=== PATIENT | female | born 1980 | race Two or more races ===

== ENCOUNTER → 2017-10-03 | Emergency (ER) | payer OTHER ==
[~2017-10-03] VITALS: Ht 160 cm; Wt 68.0 kg
[~2017-10-03] MED LIST: OBSTETRIX DHA1 EACH; ZANTAC150 MG; ZOFRAN4 MG
== END | disposition left against medical advice (07) ==
LOC: ER 13:31
DX: Z53.20 Procedure and treatment not carried out because of patient's decision for unspecified reasons (principal)

== ENCOUNTER → 2017-10-06 | Emergency (ER) | payer OTHER ==
[~2017-10-06] VITALS: Ht 160 cm; Wt 68.0 kg
== END | disposition home or self-care (01) ==
LOC: ER 18:06
DX: O26.891 Other specified pregnancy related conditions, first trimester (principal); R10.2 Pelvic and perineal pain; Z34.01 Encounter for supervision of normal first pregnancy, first trimester

== ENCOUNTER 2018-03-17 07:57 | Outpatient (CLI) | payer OTHER | END 2018-03-17 16:44 | disposition HB | LOC: OBS/DEL 07:57 | DX: O26.893 Other specified pregnancy related conditions, third trimester (principal); K21.9 Gastro-esophageal reflux disease without esophagitis; Z34.03 Encounter for supervision of normal first pregnancy, third trimester ==

== ENCOUNTER 2018-03-22 03:37 | Inpatient (IN) | payer OTHER ==
[~2018-03-22] VITALS: Ht 160 cm; Wt 77.1 kg
[2018-03-24] MEDS ORDERED: DOCUSATE SODIU100 MG PO (19:38)
[2018-03-24] MEDS ORDERED: IBUPROFEN400 MG PO (19:38)
[2018-03-24] MEDS ORDERED: PREPLUS CA-FE1 EACH PO (19:38)
== END 2018-03-24 19:48 | disposition home or self-care (01) | DRG 807 ==
LOC: LDR 03:37 → OB/GYN 03:37
PROVIDERS: ADMIT Obstetrics & Gynecology
PROC: 10E0XZZ Delivery of Products of Conception, External Approach (ICD-10-PCS; principal; 2018-03-22)
PROC: 0W8NXZZ Division of Female Perineum, External Approach (ICD-10-PCS; 2018-03-22)
PROC: 3E0P7VZ Introduction of Hormone into Female Reproductive, Via Natural or Artificial Opening (ICD-10-PCS; 2018-03-22)
PROC: 3E033VJ Introduction of Other Hormone into Peripheral Vein, Percutaneous Approach (ICD-10-PCS; 2018-03-22)
PROC: 4A1HXCZ Monitoring of Products of Conception, Cardiac Rate, External Approach (ICD-10-PCS; 2018-03-22)
DX: O80 Encounter for full-term uncomplicated delivery (principal); Z37.0 Single live birth; Z3A.37 37 weeks gestation of pregnancy